=== PATIENT | male | born 1950 | race Caucasian/White ===

== ENCOUNTER 2016-11-28 08:19 | Day surgery (SDC) | payer OTHER ==
[2016-11-25 13:27] VITALS: BMI 30.7
[2016-11-28] MEDS ORDERED: MIDAZOLAM HCL 2 MG/2 ML SINGLE DOSE VIAL ONE (09:29)
[2016-11-28] MEDS ORDERED: LEVOFLOXACIN 500 MG PREMIX BAG IVPB ONE (09:32)
[2016-11-28 11:07] VITALS: TEMP 97.8
[2016-11-28] MEDS ORDERED: ONDANSETRON 4 MG/2 ML VIAL IVPUSH PRN (11:09)
[2016-11-28] MEDS ORDERED: oxyCODONE HCL 5 MG TABLET PO PRN ×2 (11:09)
[2016-11-28] MEDS ORDERED: LACTATED RINGERS SOLUTION 1,000 ML IV SCH (11:15)
[2016-11-28 13:55] VITALS: BP 137/89; PULSE 76
--- NOTE | 2016-11-28 14:52 | OP ---
Operative Note - Note: Operative Date: 11/28/16 Pre-Operative Diagnosis: right 5mm mid pole stone Operation: right eswl Findings: 5 mm right mid pole stone Post-Operative Diagnosis: Same as Pre-op Surgeon: Connor Cochran Anesthesia: Fractional
--- NOTE | 2016-11-29 10:52 | OP ---
DATE OF OPERATION: 11/28/2016 PREOPERATIVE DIAGNOSIS: Right renal stone. POSTOPERATIVE DIAGNOSIS: Right renal stone. PROCEDURE: Right extracorporeal shock wave lithotripsy. ATTENDING: Radha Szymanski MD ANESTHESIA: Fractional. OPERATION: The patient was brought into the operating room, placed in supine position on the operating room table. Ultrasonography and fluoroscopy were performed. A 5-mm right mid pole stone was identified. At this point, anesthesia was administered as were preoperative antibiotics. Shock wave lithotripsy was then performed, 2500 impulses at 17 joules of power was administered to the stone with excellent fragmentation under real time ultrasonography and fluoroscopy. The disposition of the patient was to the recovery room. RADHA SZYMANSKI M.D. [id number]
== END 2016-11-28 13:00 | disposition home or self-care (01) ==
LOC: JASU-SURG 08:19
PROVIDERS: ATTEND Urology
PROC: 0TF3XZZ Fragmentation in Right Kidney Pelvis, External Approach (ICD-10-PCS; principal; 2016-11-28 09:30)
DX: N20.0 Calculus of kidney (principal)

== ENCOUNTER 2019-07-29 07:05 | Day surgery (SDC) | payer OTHER ==
[2019-07-24 15:28] VITALS: BMI 29.8
[2019-07-29 08:35] VITALS: TEMP 98.2
[2019-07-29 09:51] VITALS: BP 113/65; PULSE 66
--- NOTE | 2019-07-31 14:58 | PATH ---
Surgical Pathology Report Patient Name: JAYDA VASQUEZ [facility]. Rec. #: [id number] /Age/Gender: 1950 (Age: 68) / M Account: [id number] Location: U-ENDOSCOPY Taken: 07/29/2019 Received: 07/29/2019 Reported: 07/31/2019 Physicians: Alina Victor M.D. Specimen(s) Received POLYP SIGMOID Clinical History Colon cancer screening Postoperative diagnosis: Sigmoid polyp, patent sigmoid anastomosis Final Diagnosis SIGMOID COLON, POLYP, BIOPSY: CONSISTENT WITH MUCOSAL SCHWANN CELL HAMARTOMA. SEE COMMENT. Comment: There is a mucosal spindle cell proliferation within the lamina propria. Immunohistochemical stain performed and interpreted at [facility] show the lesion is positive for S100. Additional immunohistochemical stains performed at [place], [place] ([id number]) and interpreted at [facility] show SMA, CD117 and DOG-1 (high background) are negative. Positive and negative controls (internal if applicable) show appropriate results. Electronically Signed Tana Morrison M.D. Gross Description Received in formalin, labeled "polyp sigmoid" is a coppola, irregular portion of soft tissue measuring 0.2 cm. in greatest dimension. The specimen is submitted in toto in one cassette. 07/29/2019 [facility]07/29/2019
== END 2019-07-29 09:48 | disposition home or self-care (01) ==
LOC: JASU-ENDO 07:05
PROVIDERS: ATTEND Internal Medicine Gastroenterology
PROC: 0DBN8ZX Excision of Sigmoid Colon, Via Natural or Artificial Opening Endoscopic, Diagnostic (ICD-10-PCS; principal; 2019-07-29 08:00)
DX: Z12.11 Encounter for screening for malignant neoplasm of colon (principal); K63.5 Polyp of colon; K57.30 Diverticulosis of large intestine without perforation or abscess without bleeding; K64.8 Other hemorrhoids; Z98.0 Intestinal bypass and anastomosis status; Z80.0 Family history of malignant neoplasm of digestive organs
CPT/HCPCS: 88305-TC; 88342-TC